=== PATIENT | female | born 1950 | race Caucasian/White ===

== ENCOUNTER → 2024-01-03 | Outpatient (CLI) | payer OTHER, MEDICAID, SELFPAY ==
[2024-01-03 11:32] LABS: Basophils % (Auto) 1 % (0-2.5); Eosinophils % (Auto) 1 % (0-10); Hematocrit 38.6 % (36.0-46.0); Hemoglobin 12.9 g/dL (12.0-16.0); Immature Granulocytes % (Auto) 0 % (0-0); Immature Granulocytes Auto 0.01 Thou/mm3 (0.00-0.00); Lymphocytes # (Auto) 1.4 Thou/mm3 (1.0-4.8); Lymphocytes % (Auto) 23 % (10-50); Mean Corpuscular HGB Conc 33.4 g/dl (31.0-37.0); Mean Corpuscular Hemoglobin 28.1 pg (25.0-35.0); Mean Corpuscular Volume 84 fL (80-100); Monocytes # (Auto) 0.5 Thou/mm3 (0.0-0.8); Monocytes % (Auto) 8 % (0-12); Neutrophils # (Auto) 4.1 Thou/mm3 (1.8-7.7); Neutrophils % (Auto) 68 % (37-80); Nucleated Red Blood Cell % 0 /100 WBC (0); Platelet Count 154 Thou/mm3 (140-440); RDW Standard Deviation 41.9 fL (36.4-46.3); Red Blood Count 4.59 Miln/mm3 (4.00-5.20); White Blood Count 6.1 Thou/mm3 (3.6-11.0)
[2024-01-03 11:43] LABS: Glucose Estimated Average 94 mg/dL (80-131); Hemoglobin A1C 4.9 % Hgb (4.8-6.0)
[2024-01-03 11:58] LABS: Alanine Aminotransferase 8 U/L (10-49); Albumin, Serum 4.5 gm/dL (3.4-4.8); Alkaline Phosphatase 83 U/L (46-116); Anion Gap 8 (7-16); Aspartate Amino Transferase 17 U/L (0-34); BUN/Creatinine Ratio 15 Ratio (12-20); Bilirubin,Total 0.7 mg/dL (0.3-1.2); Blood Urea Nitrogen 17 mg/dL (9-23); Calcium 9.7 mg/dL (8.3-10.6); Calcium (Corrected) 9.7 mg/dL (8.5-10.1); Carbon Dioxide 25.8 mMol/L (20.0-31.0); Cardiac Risk Estimate 2.9 RATIO (3.7-5.6); Chloride 106 mMol/L (98-107); Cholesterol 141 mg/dL (132-200); Creatinine (Component) 1.1 mg/dL (0.6-1.3); Globulin 2.2 gm/dL (2.3-3.5); Glucose 81 mg/dL (74-106); HDL Cholesterol 48 mg/dL (40-60); LDL Cholesterol,Calculated 70 mg/dL (0-130); Osmolality,Calculated 279 (275-295); Potassium 3.8 mMol/L (3.4-5.1); Sodium 140 mMol/L (136-145); Total Protein 6.7 gm/dL (5.7-8.2); Triglycerides 115 mg/dL (30-150); eGFR 52 See Note
[2024-01-03 12:36] LABS: Collection Type, Urine Clean Catch
[2024-01-03 13:00] LABS: Creatinine MALB Rnd Ur 235 mg/dL (30-125); Microalbumin Creat Ratio 2 mg/gCrea (<30); Microalbumin, Random Urine 4 mg/L (0-300)
[2024-01-03 13:06] LABS: Bilirubin,Urine Negative (Negative); Blood,Urine Negative (Negative); Clarity,Urine Turbid (Clear/Hazy); Color,Urine Yellow (Lt Yel-Yel); Glucose, Urine Negative (Negative); Hyaline Casts,Urine < 1 /hpf (0-1); Ketones,Urine Negative (Negative); Leukocyte Esterase,Urine Positive (Negative); Nitrite,Urine Negative (Negative); Protein,Urine Trace (Neg - Trace); RBC,Urine 6 /hpf (0-3); Specific Gravity,Urine 1.027 (1.001-1.035); Squamous Epithelial Cell,Urine 7 /hpf (0-5); Urobilinogen,Urine Negative mg/dL (0.0-1.0); WBC,Urine 5 /hpf (0-5)
== END | disposition home or self-care (01) ==
LOC: COPL 10:29
PROVIDERS: PCP Internal Medicine; Referring Provider Internal Medicine; Visit Provider Internal Medicine
DX: I10 Essential (primary) hypertension (principal); E78.5 Hyperlipidemia, unspecified; I25.10 Atherosclerotic heart disease of native coronary artery without angina pectoris
CPT/HCPCS: 36415; 80053; 80061; 81001; 82043; 82570; 83036; 85025

== ENCOUNTER → 2024-01-29 | Outpatient (CLI) | payer OTHER, MEDICAID, SELFPAY ==
[2024-01-29 16:08] LABS: Anion Gap 11 (7-16); BUN/Creatinine Ratio 17 Ratio (12-20); Blood Urea Nitrogen 19 mg/dL (9-23); C-Reactive Protein < 0.4 mg/dL (0.0-0.9); Calcium 9.6 mg/dL (8.3-10.6); Chloride 105 mMol/L (98-107); Creatinine (Component) 1.1 mg/dL (0.6-1.3); Glucose 87 mg/dL (74-106); Osmolality,Calculated 280 (275-295); Potassium 4.1 mMol/L (3.4-5.1); Sodium 140 mMol/L (136-145); eGFR 52 See Note
[2024-01-29 16:40] LABS: Hepatitis A Antibody IgM Non Reactive (Non React); Hepatitis B Core Antibody IgM Non Reactive (Non React); Hepatitis B Surface Antigen Non Reactive (Non React); Hepatitis C Antibody Non Reactive (Non React)
[2024-01-29 17:14] LABS: Sed Rate (ESR) 16 mm/hr (0-30)
[2024-01-29 20:15] LABS: Creatinine MALB Rnd Ur 194 mg/dL (30-125); Microalbumin Creat Ratio 2 mg/gCrea (<30); Microalbumin, Random Urine 4 mg/L (0-300)
[2024-02-05 06:17] LABS: CA 19-9 Antigen* 18 U/mL (<34)
== END | disposition home or self-care (01) ==
PROVIDERS: PCP Internal Medicine; Referring Provider Internal Medicine Gastroenterology; Visit Provider Internal Medicine Gastroenterology
DX: K29.00 Acute gastritis without bleeding (principal)
CPT/HCPCS: 36415; 80048; 80074; 82043; 82570; 85652; 86140; 86301

== ENCOUNTER → 2024-01-30 | Outpatient (CLI) | payer OTHER, MEDICAID, SELFPAY ==
[2024-01-30 08:57] LABS: OBS Card Expiration Date 2026-09; OBS Card Lot # 23001; OBS Performed By LAB; OBS QC OK? Yes
[2024-01-30 09:04] LABS: Quantiferon-TB* See Sep Rpt
[2024-01-30 13:40] LABS: OBS Developer Lot # 23003; Occult Blood, Stool Negative (Negative)
[2024-02-06 06:23] LABS: Helicobacter pylori Ag, Stool* NOT DETECTED (NOT DETECTED)
== END | disposition home or self-care (01) ==
PROVIDERS: PCP Internal Medicine; Referring Provider Internal Medicine Gastroenterology; Visit Provider Internal Medicine Gastroenterology
DX: K29.00 Acute gastritis without bleeding (principal)
CPT/HCPCS: 82043; 82270; 82570; 86480; 87015; 87045; 87046; 87177; 87209; 87338; 87899

== ENCOUNTER → 2024-02-28 | Outpatient (CLI) | payer OTHER, MEDICAID, SELFPAY ==
[2024-02-28 12:52] LABS: Albumin, Serum 4.6 gm/dL (3.4-4.8); Anion Gap 11 (7-16); BUN/Creatinine Ratio 17 Ratio (12-20); Blood Urea Nitrogen 19 mg/dL (9-23); Calcium 9.9 mg/dL (8.3-10.6); Calcium (Corrected) 9.9 mg/dL (8.5-10.1); Carbon Dioxide 26.5 mMol/L (20.0-31.0); Chloride 104 mMol/L (98-107); Creatinine (Component) 1.1 mg/dL (0.6-1.3); Glucose 87 mg/dL (74-106); Osmolality,Calculated 282 (275-295); Phosphorous 3.7 mg/dL (2.4-5.1); Sodium 141 mMol/L (136-145); eGFR 52 See Note
== END | disposition home or self-care (01) ==
LOC: COPL 11:48
PROVIDERS: PCP Internal Medicine; Referring Provider Internal Medicine; Visit Provider Internal Medicine
DX: I10 Essential (primary) hypertension (principal)
CPT/HCPCS: 36415; 80069

== ENCOUNTER → 2024-03-03 | Outpatient (CLI) | payer OTHER, MEDICAID, SELFPAY ==
--- NOTE | 2024-03-03 08:00 | XR_ITS ---
Examination: MRI abdomen with intravenous contrast. MRI abdomen without intravenous contrast. Date and time of exam: March 03, 2024 at 0845 hours INDICATIONS: Abdominal pain flank pain beginning one year ago Technique: Multiple axial, sagittal and coronal sections of the abdomen obtained. Transverse images, TR 6020, TE 107. T1 weighted transverse images, TR 582, TE 9.5. T2-weighted sagittal images, TR 4000, TE 105. T2-weighted sagittal images, TR 4000, TE 5. Coronal images, TR 4210, TE 107. Axial and coronal images are obtained post 20 cc intravenous injection, gadolinium. Findings: No focal liver lesions or biliary tract dilatation Gallbladder wall appears mildly thickened No extra hepatic biliary tract dilatation No common hepatic or common bile duct stones Bilateral renal cysts, the largest upper pole left kidney 3.9 cm No hydronephrosis No ascites Aorta normal size Postcontrast images demonstrate no abnormal enhancing liver or splenic lesions IMPRESSION: Recommend hepatobiliary sonography follow-up to exclude thickening gallbladder wall Bilateral benign renal cysts
--- NOTE | 2024-03-03 09:00 | XR_ITS ---
Examination: MRI pelvis with intravenous contrast. MRI pelvis without intravenous contrast. Date and time of exam: March 03, 2024 0845 hours INDICATIONS: Stabbing pain in the vaginal area beginning September 23, 2023, abdominal pain flank pain one year Technique: Multiple axial, sagittal and coronal sections of the pelvis obtained. Transverse images, TR 6020, TE 107. T1 weighted transverse images, TR 582, TE 9.5. T2-weighted sagittal images, TR 4000, TE 105. T2-weighted sagittal images, TR 4000, TE 5. Coronal images, TR 4210, TE 107. Axial and coronal images are obtained post 20 cc intravenous injection, gadolinium. Findings: Atrophic anteverted uterus, 6 x 3 x 4 cm Uterine body area of fibroid degeneration 13 x 12 mm without enhancement Endometrial stripe is not thickened Magnetic susceptibility artifact from lower lumbar transpedicular fixation screws degrades image quality in the pelvis No adnexal mass Enhancing mass in the left iliacus muscle 3.4 cm with surrounding edema IMPRESSION: Enhancing mass left iliacus muscle 3.4 x 3.6 cm, recommend high-resolution CT pelvis post intravenous contrast follow-up
== END | disposition home or self-care (01) ==
LOC: SMRI 07:32
PROVIDERS: PCP Internal Medicine Gastroenterology; Referring Provider Internal Medicine Gastroenterology; Visit Provider Internal Medicine Gastroenterology
DX: N28.1 Cyst of kidney, acquired (principal)
CPT/HCPCS: 72197; 74183; A9579

== ENCOUNTER 2024-06-12 16:18 | Emergency (ER) | payer OTHER, MEDICAID, SELFPAY ==
[2024-06-12 16:19] VITALS: BMI 31.7
[2024-06-12 16:28] VITALS: BP 145/79; PULSE 71; RESP 18; TEMP 37.1; O2SAT 98
--- NOTE | 2024-06-12 16:36 | EKG_ITS ---
[facility] Test Date: 2024-06-12 Pat Name: JAMEY CHUA Department: Room: - Gender: Female Mat Maker: : [id number] Requested By: Sylvester Alejandre Order Number: [id number] Reading MD: Sylvester Alejandre Measurements Intervals Hellier Rate: 68 P: 53 DC: 182 QRS: 14 QRSD: 90 T: 28 QT: 414 QTc: 443 Interpretive Statements SINUS RHYTHM Compared to ECG 10/29/2023 14:17:24 Myocardial infarct finding no longer present /store/S0/[id number]/ecg/[id number].pdf
--- NOTE | 2024-06-12 16:36 | XR_ITS ---
Examination: CT brain head without contrast. 2-D sagittal coronal reconstructions Date and time of exam:June 12, 2024 1715 hrs. Indications: Dizziness episodes with lightheadedness 3 days CTDI: vol (mGy):45.3 DLP: (mGycm):981 Technique: Multiple CT axial sections of the brain have been obtained, 5 mm slice thickness. Contrast has not been administered. 2-D sagittal, coronal reconstructions have been obtained Low dose protocols were performed. One or more of the following dose reduction techniques were used; automated exposure control, adjustment of the mA and/or KV according to patient size, use of iterative reconstruction technique. Findings: No significant ventricular enlargement. Intra-axial or extra-axial hemorrhage density is not seen. No mass effect or midline shift Basal cisterns are not remarkable. Fourth ventricle is midline. Cranial vault intact. Impression: Negative for acute hemorrhage, mass effect or midline shift Advise clinical correlation follow-up accordingly
--- NOTE | 2024-06-12 16:36 | PD.EDRME ---
Rapid Medical Screening Exam RME Arrival date/time: 06/12/24 16:18 74-year-old female with a history of hypertension, hyperlipidemia, presents to the emergency room with a chief complaint of dizziness and lightheadedness x 3 days I have greeted and performed a focused initial assessment of this patient. A comprehensive ED assessment and evaluation of the patient, analysis of all test results, and completion of the medical decision making process will be conducted by additional ED providers. Chief Complaint: General Adult/Misc Complain Time Seen by Provider: 06/12/24 16:28 Vital signs: Vital Signs Temperature 98.7 F 06/12/24 16:28 Pulse Rate 71 06/12/24 16:28 Respiratory Rate 18 06/12/24 16:28 Blood Pressure 145/79 H 06/12/24 16:28 Pulse Oximetry (%) 98 06/12/24 16:28 Oxygen Delivery Method Room Air 06/12/24 16:28 Vital signs reviewed by provider: Yes
[2024-06-12] MEDS: MECLIZINE HCL 25 MG TABLET 50 MG PO (16:44)
[2024-06-12 17:22] LABS: Basophils # (Auto) 0.1 Thou/mm3 (0.0-0.2); Basophils % (Auto) 1 % (0-2.5); Eosinophils % (Auto) 1 % (0-10); Hemoglobin 14.2 g/dL (12.0-16.0); Immature Granulocytes % (Auto) 1 % (0-0); Immature Granulocytes Auto 0.03 Thou/mm3 (0.00-0.00); Lymphocytes # (Auto) 1.8 Thou/mm3 (1.0-4.8); Lymphocytes % (Auto) 28 % (10-50); Mean Corpuscular Volume 82 fL (80-100); Monocytes # (Auto) 0.8 Thou/mm3 (0.0-0.8); Monocytes % (Auto) 12 % (0-12); Neutrophils # (Auto) 3.7 Thou/mm3 (1.8-7.7); Neutrophils % (Auto) 59 % (37-80); Nucleated Red Blood Cell % 0 /100 WBC (0); Platelet Count 187 Thou/mm3 (140-440); RDW Standard Deviation 44.6 fL (36.4-46.3); Red Blood Count 5.25 Miln/mm3 (4.00-5.20); White Blood Count 6.4 Thou/mm3 (3.6-11.0)
[2024-06-12 17:42] LABS: Alanine Aminotransferase 21 U/L (10-49); Albumin, Serum 4.7 gm/dL (3.4-4.8); Albumin/Globulin Ratio 1.9 (1.2-2.2); Alkaline Phosphatase 66 U/L (46-116); Anion Gap 11 (7-16); Aspartate Amino Transferase 39 U/L (0-34); BUN/Creatinine Ratio 16 Ratio (12-20); Bilirubin,Total 0.7 mg/dL (0.3-1.2); Blood Urea Nitrogen 16 mg/dL (9-23); Calcium 9.8 mg/dL (8.3-10.6); Calcium (Corrected) 9.8 mg/dL (8.5-10.1); Carbon Dioxide 19.6 mMol/L (20.0-31.0); Chloride 107 mMol/L (98-107); Estimated Creatinine Clearance 44.7 mL/min (>60); Globulin 2.5 gm/dL (2.3-3.5); Glucose 98 mg/dL (74-106); Osmolality,Calculated 276 (275-295); Potassium 4.5 mMol/L (3.4-5.1); Sodium 138 mMol/L (136-145); Total Protein 7.2 gm/dL (5.7-8.2); Troponin I < 0.020 ng/mL (0.0-0.045); eGFR 58 See Note
[2024-06-12] MEDS: ONDANSETRON ODT 4 MG TABRAP PO (18:18)
[2024-06-12 19:50] VITALS: BP 145/93; PULSE 60; RESP 18; TEMP 36.9; O2SAT 99
[2024-06-12 20:46] LABS: Collection Type, Urine Clean Catch
[2024-06-12 21:06] LABS: Bilirubin,Urine Negative (Negative); Blood,Urine Negative (Negative); Clarity,Urine Turbid (Clear/Hazy); Color,Urine Yellow (Lt Yel-Yel); Glucose, Urine Negative (Negative); Hyaline Casts,Urine < 1 /hpf (0-1); Ketones,Urine Negative (Negative); Leukocyte Esterase,Urine Positive (Negative); Nitrite,Urine Negative (Negative); PH,Urine 5.5 (5.0-7.0); Protein,Urine Negative (Neg - Trace); RBC,Urine 6 /hpf (0-3); Specific Gravity,Urine 1.021 (1.001-1.035); Squamous Epithelial Cell,Urine 20 /hpf (0-5); Urobilinogen,Urine Negative mg/dL (0.0-1.0); WBC,Urine 10 /hpf (0-5)
--- NOTE | 2024-06-12 21:40 | PD.EDADULT ---
ED General RME/HPI General Chief complaint: General Adult/Misc Complain Stated complaint: FEELS LIKE BLOOD IS RUSHING TO HEAD, WEAK Time Seen by Provider: 06/12/24 16:28 Arrival date/time: 06/12/24 16:18 RME / HPI RME / HPI narrative: 74-year-old female with a history of hypertension, hyperlipidemia, presents to the emergency room with a chief complaint of dizziness and lightheadedness x 3 days. Everything happened with the patient is shifting position from sitting to standing patient denies any syncope. Denies any chest pain denies any headache denies any other complaints. Related Data Home Medications ?Medication ?Instructions ?Recorded ?Confirmed benazepril 20 mg tablet 5 mg PO QDAY 02/22/18 07/09/23 omeprazole 20 mg tablet,delayed 20 mg PO QDAY 02/22/18 07/09/23 release allopurinol 300 mg tablet 300 mg PO DAILY 03/25/21 07/09/23 atorvastatin 80 mg tablet 80 mg PO DAILY 03/25/21 07/09/23 carvedilol 6.25 mg tablet 6.25 mg PO DAILY 03/25/21 07/09/23 dldqjx-gkpiyrjk-wxwierr 12,000 cap PO DAILY 03/25/21 07/09/23 12,000-38,000-60,000 unit capsule,delayed rel (Creon) ranolazine 500 mg tablet,extended 5 mg PO BID 03/25/21 07/09/23 release,12 hr spironolactone 25 mg tablet 25 mg PO EVERYOTHER03/25/21 07/09/23 roflumilast 500 mcg tablet 500 mcg PO QDAY 09/08/21 07/09/23 (Daliresp) carbidopa 25 mg-levodopa 100 mg 1 tab PO TID 07/09/23 07/09/23 tablet Previous Rx's ?Medication ?Instructions ?Recorded pantoprazole 40 mg tablet,delayed 40 mg PO QDAY #30 tabs 06/28/23 release (Protonix) pantoprazole 40 mg tablet,delayed 40 mg PO QDAY #30 tabs 07/11/23 release (Protonix) sucralfate 100 mg/mL oral 5 ml PO QID #420 mL 07/11/23 suspension (Carafate) diazepam 5 mg tablet 5 mg PO BID PRN muscle spasm #5 09/24/23 tabs Allergies Allergy/AdvReac Type Severity Reaction Status Date / Time duloxetine Allergy Intermediate Shakiness Verified 06/12/24 16:21 gabapentin Allergy Intermediate Rash Verified 06/12/24 16:21 Review of Systems Review of Systems Narrative Review of Systems: Review of system reviewed and within normal limits except mentioned in HPI ED Exam Narrative Physical exam: VITAL SIGNS: Reviewed. GENERAL APPEARANCE: Alert and interactive, follows commands, no acute distress, HEAD AND FACE: Non-traumatic. ENT: PERRL, pink conjunctivitis, eyelid no trauma, Mucous membrane moist. NECK: Supple, nontender, no nuchal rigidity. CHEST: No tenderness, no crepitus, no paradoxical movement, no retractions. LUNGS: Clear, well ventilated, symmetric, no rales, no wheezing, no ronchi, no stridor, good breath sounds bilaterally. HEART: Regular rate, regular rhythm, no murmur, no gallops. ABDOMEN: Soft, positive bowel sounds, nondistended, no guarding, nontender, no rebound, no masses, RECTAL: Deferred. GENITAL: Deferred. NEUROLOGICAL: Gross motor function intact sensory function intact, Appropriate for age. MUSCULOSKELETAL: low back nontender, full range of motion. EXTREMITIES: Nontender, full range of motion. SKIN: Color pink, dry, no rash, no lacerations, no abrasions, no contusions. LYMPHATICS: Deferred. Course Quality Measures none Orders Category Date Time Status EKG (ED ONLY) *Do not use* NOW Care 06/12/24 16:36 Completed Orthostatic Vitals NOW Care 06/12/24 16:[address] head/brain wo con Stat Exams 06/12/24 16:36 Completed EKG (ED Only) Stat Exams 06/12/24 16:36 Draft CBC Stat Lab 06/12/24 16:56 Completed Comprehensive Metabolic Panel Stat Lab 06/12/24 16:56 Completed Troponin I Stat Lab 06/12/24 16:56 Completed Urinalysis Stat Lab 06/12/24 19:48 Completed Urine Culture Stat Lab 06/12/24 16:36 Received Meclizine HCl [Antivert] Med 06/12/24 16:36 Discontinued 50 mg PO X1 ONE Ondansetron Odt [Zofran Odt] Med 06/12/24 17:03 Discontinued 4 mg PO X1 ONE Vital Signs Vital signs: Vital Signs Temperature 98.7 F 06/12/24 16:28 Pulse Rate 71 06/12/24 16:28 Respiratory Rate 18 06/12/24 16:28 Blood Pressure 145/79 H 06/12/24 16:28 Pulse Oximetry (%) 98 06/12/24 16:28 Oxygen Delivery Method Room Air 06/12/24 16:28 Discharge Plan Plan Patient Disposition: HOME (Self Care) Disposition Comment: Stable Prescriptions/Referrals Prescriptions/Med Rec: No Action Daliresp 500 mcg tablet 500 mcg PO QDAY benazepril 20 mg Tablet 5 mg PO QDAY omeprazole 20 mg Tablet,Delayed Release (Dr/Ec) 20 mg PO QDAY Creon 12,000-38,000 -60,000 unit Capsule,Delayed Release(Dr/Ec) 12,000 cap PO DAILY spironolactone 25 mg tablet 25 mg PO EVERYOTHERDAY ranolazine 500 mg Tablet Extended Release 12 Hr 5 mg PO BID atorvastatin 80 mg tablet 80 mg PO DAILY carvedilol 6.25 mg tablet 6.25 mg PO DAILY allopurinol 300 mg tablet 300 mg PO DAILY pantoprazole [Protonix] 40 mg tablet,delayed release (DR/EC) 40 mg PO QDAY Qty: 30 0RF carbidopa-levodopa 25-100 mg tablet 1 tab PO TID Patient Comments: take 1 tablet by mouth three times a day sucralfate [Carafate] 100 mg/mL suspension 5 ml PO QID Qty: 420 0RF Rx Instructions: swish in mouth and swallow; use after food/drink pantoprazole [Protonix] 40 mg tablet,delayed release (DR/EC) 40 mg PO QDAY Qty: 30 0RF diazepam 5 mg tablet 5 mg PO BID MDD 2 PRN (Reason: muscle spasm) Qty: 5 0RF Referrals: No Primary/Family,Physician [Primary Care Provider] - In 1 week Problem List Clinical Impression: Orthostatic dizziness Patient/Caregiver Discharge Instructions Discharge Activity: activity as tolerated Education Materials: Dizziness Fainting Poss Causes Additional Instructions: Thank you for the opportunity for serving you today. You are stable for discharged . You are advised to: Follow-up with your PCP in 1 to 2 days Return to ED for worsening of symptoms Increase oral fluids Please wear SHANIA hose in the morning and remove it during the night Print Language: Croatian Stand Alone Forms: Margie Award Info., Patient Portal Info Letter CECILY Supervising Physician CECILY Supervising Physician: MD Nj [facility] Patient Acuity Narrative: 74-year-old female with a history of hypertension, hyperlipidemia, presents to the emergency room with a chief complaint of dizziness and lightheadedness x 3 days. Everything happened with the patient is shifting position from sitting to standing patient denies any syncope. Denies any chest pain denies any headache denies any other complaints. Patient CBC showed no leukocytosis, no anemia noted. CMP also came back unremarkable. Urinalysis no UTI. Patient's blood pressure was noted to be stable. CT scan of the head came back unremarkable. EKG showed normal sinus rhythm, ventricular rate of 68 bpm, no ST segment elevation depression noted. Patient's symptoms could be related to orthostatic dizziness. She was advised to drink a lot of fluids and wear SHANIA hose in the morning and remove it during the night. Prior to discharge she denies any complaints. Clinical Information Provided by: none Medication Administration(s) Medication Administration History Discontinued Medications Meclizine HCl (Meclizine Hcl 25 Mg Tablet) 50 mg PO X1 ONE Stop: 06/12/24 16:37 Last Admin: 06/12/24 16:44 Dose: 50 mg Documented By: WESLEY Ondansetron HCl (Ondansetron Odt 4 Mg Tabrap) 4 mg PO X1 ONE; Protocol Stop: 06/12/24 17:04 Last Admin: 06/12/24 18:18 Dose: 4 mg Documented By: WESLEY Meclizine and Zofran
== END 2024-06-12 21:40 | disposition home or self-care (01) ==
PROVIDERS: Nurse Practitioner Family; Emergency Provider Emergency Medicine
DX: R42 Dizziness and giddiness (principal); E78.5 Hyperlipidemia, unspecified; I10 Essential (primary) hypertension
CPT/HCPCS: 36415; 70450; 80053; 81001; 84484; 85025; 87086; 93005; 99284; Q0162; A9270

== ENCOUNTER 2024-08-26 19:51 | Emergency (ER) | payer MEDICAID, SELFPAY ==
[2024-08-26 20:13] VITALS: BP 142/68; PULSE 61; RESP 20; TEMP 37.3; O2SAT 95
--- NOTE | 2024-08-26 20:52 | XR_ITS ---
Examination: CT brain head without contrast. 2-D sagittal coronal reconstructions Date and time of exam:August 26, 2024, 2122 hours Comparison June 28, 2024 INDICATIONS: Headache blurred vision today CTDI: vol (mGy):42 DLP: (mGycm):765 Technique: Multiple CT axial sections of the brain have been obtained, 5 mm slice thickness. Contrast has not been administered. 2-D sagittal, coronal reconstructions have been obtained Low dose protocols were performed. One or more of the following dose reduction techniques were used; automated exposure control, adjustment of the mA and/or KV according to patient size, use of iterative reconstruction technique. Findings: No significant ventricular enlargement. Intra-axial or extra-axial hemorrhage density is not seen. No mass effect or midline shift Basal cisterns are not remarkable. Fourth ventricle is midline. Cranial vault intact. Impression: Negative for acute hemorrhage, mass effect or midline shift If symptoms persist, consider brain MRI follow-up
--- NOTE | 2024-08-26 20:54 | PD.EDADULT ---
ED General RME/HPI General Chief complaint: Headache Stated complaint: HEADACHE BLURRY VISION Time Seen by Provider: 08/26/24 20:03 Arrival date/time: 08/26/24 19:51 Patient presenting with ongoing bitemporal occipital headache approximately 3 days duration of increasing intensity associated with warm flushed sensation. Patient also notes blurred vision . No lateralizing weakness or paresthesias although the patient does report mild confusion. No vomiting or diarrhea. Headache is throbbing in character and unchanged with exertion. Mode of arrival: ambulatory Limitations: no limitations Related Data Home Medications ?Medication ?Instructions ?Recorded ?Confirmed benazepril 20 mg tablet 5 mg PO QDAY 02/22/18 07/09/23 omeprazole 20 mg tablet,delayed 20 mg PO QDAY 02/22/18 07/09/23 release allopurinol 300 mg tablet 300 mg PO DAILY 03/25/21 07/09/23 atorvastatin 80 mg tablet 80 mg PO DAILY 03/25/21 07/09/23 carvedilol 6.25 mg tablet 6.25 mg PO DAILY 03/25/21 07/09/23 gukppu-pwecspce-inidkct 12,000 cap PO DAILY 03/25/21 07/09/23 12,000-38,000-60,000 unit capsule,delayed rel (Creon) ranolazine 500 mg tablet,extended 5 mg PO BID 03/25/21 07/09/23 release,12 hr spironolactone 25 mg tablet 25 mg PO EVERYOTHERDAY 03/25/21 07/09/23 roflumilast 500 mcg tablet 500 mcg PO QDAY 09/08/21 07/09/23 (Daliresp) carbidopa 25 mg-levodopa 100 mg 1 tab PO TID 07/09/23 07/09/23 tablet Previous Rx's ?Medication ?Instructions ?Recorded pantoprazole 40 mg tablet,delayed 40 mg PO QDAY #30 tabs 06/28/23 release (Protonix) pantoprazole 40 mg tablet,delayed 40 mg PO QDAY #30 tabs 07/11/23 release (Protonix) sucralfate 100 mg/mL oral 5 ml PO QID #420 mL 07/11/23 suspension (Carafate) diazepam 5 mg tablet 5 mg PO BID PRN muscle spasm #5 09/24/23 tabs meclizine 25 mg tablet 25 mg PO QID PRN dizziness #20 tabs 06/28/24 acetaminophen 300 mg-codeine 15 mg 1 tab PO Q8H #14 tabs 08/27/24 tablet cefdinir 300 mg capsule 300 mg PO BID 7 days #14 caps 08/27/24 hydrocodone 5 mg-acetaminophen 325 1 tab PO Q6H PRN pain #1 tab 08/27/24 mg tablet hydrocodone 5 mg-acetaminophen 325 1 tab PO Q6H PRN pain #14 tabs 08/27/24 mg tablet ondansetron 4 mg disintegrating 4 mg PO Q6H PRN nausea and 08/27/24 tablet vomiting #10 tabs Allergies Allergy/AdvReac Type Severity Reaction Status Date / Time duloxetine Allergy Intermediate Shakiness Verified 08/26/24 19:58 gabapentin Allergy Intermediate Rash Verified 08/26/24 19:58 Review of Systems Constitutional Constitutional: Denies chills and Denies fever(s) ENT Ears, Nose, Mouth, and Throat: Denies nasal congestion, Denies nasal discharge, Denies sinus pressure and Denies sore throat Cardiovascular Cardiovascular: Denies chest pain, Denies dyspnea and Denies edema Respiratory Respiratory: Denies cough and Denies dyspnea Gastrointestinal Gastrointestinal: Denies nausea and Denies vomiting Musculoskeletal Musculoskeletal: Denies arthralgias Neurologic Neurologic: Reports system reviewed and no additional complaints, except as documented Hematologic/Lymphatic Hematologic/Lymphatic: Denies easy bleeding and Denies easy bruising Past Medical History Past Medical History NEUROLOGIC: Negative Neurological Disorders or Seizures CARDIAC: Positive Cardiac Disorders, Myocardial Infarction, Hypercholesterolemia and Hypertension; Negative Congestive Heart Failure RESPIRATORY: Positive Chronic Obstructive Pulmonary Disease (COPD), Emphysema and Pneumonia; Negative Tuberculosis or Sleep Apnea GASTROINTESTINAL: Positive Gastrointestinal Disorders, Pancreatitis, Hemorrhoids and Gastroesophageal Reflux Disease; Negative Hepatitis GENITOURINARY: Positive Genitourinary Disorders and Renal Disease; Negative Dialysis REPRODUCTIVE: Positive Previous Pregnancies MUSCULOSKELETAL: Positive Musculoskeletal Disorders, Arthritis and Carpal Tunnel Syndrome ENT: Positive Cataracts ENDOCRINE: Positive Endocrine Disorders, Diabetes Mellitus Type 1 and Diabetes Mellitus Type 2 HEMATOLOGIC: Positive Blood Disorders PSYCHO/SOCIAL: Positive Depression and Anxiety OTHER HISTORY: Positive Hospitalization, Chicken Pox, Measles and Mumps; Negative Autoimmune Disease, Shingles, Falls, Blood Transfusions, Blood Transfusion Reaction, Anesthesia Reactions, Chemotherapy, Radiation Therapy, MRSA or Cancer Family History FAMILY HISTORY: Positive Family Cardiac Disorders and Family Cancer; Negative Family Psychiatric Problems, Family Respiratory Disorders, Family Gastrointestinal Problems, Family Surgery or Family Anesthesia Reaction Surgical History SURGICAL: Positive Tonsillectomy, Joint Replacement and Open Reduction Internal Fixation Social History SMOKING STATUS: Former smoker SUBSTANCE USE: does not use ALCOHOL FREQUENCY: holidays/special occasions only ED Exam General Limitations: Present no limitations General appearance: Present alert and in distress (Mild distress complains of headache) Head Head exam: Present atraumatic Eye Eye exam: Present normal appearance, PERRL, EOMI and other (Funduscopic examination is normal) ENT ENT exam: Present normal exam, normal oropharynx and mucous membranes moist Neck Neck exam: Present normal inspection, full ROM and trachea midline Chest Chest inspection: Present normal inspection and symmetric chest wall rise Respiratory Respiratory exam: Present normal lung sounds bilaterally Cardiovascular Cardiovascular exam: Present regular rate, normal rhythm and normal heart sounds Abdominal Exam Abdominal exam: Present soft and normal bowel sounds; Absent distention or tenderness Extremities Exam Extremities exam: Present normal inspection and full ROM Back Exam Back exam: Present normal inspection and full ROM Neurological Exam Neurological exam: Present alert, oriented X3, CN II-XII intact and reflexes normal; Absent motor sensory deficit Psychiatric Psychiatric exam: Present normal affect and normal mood Skin Skin exam: Present warm, dry, intact and normal color Course Quality Measures none Orders Category Date Time Status Insert IV NOW Care 08/26/24 20:[address] head/brain wo con Stat Exams 08/26/24 20:52 Completed C-Reactive Protein Stat Lab 08/26/24 21:11 Completed CBC Stat Lab 08/26/24 21:11 Completed CMP [Comprehensive Metabolic Panel] Stat Lab 08/26/24 21:11 Completed Sed Rate (ESR) Stat Lab 08/26/24 21:11 Completed Urinalysis, C/S if Indicated Stat Lab 08/26/24 22:05 Completed Morphine Inj Med 08/26/24 20:51 Discontinued 2 mg IVP Q30M ONE Prochlorperazine Inj [Compazine Inj] Med 08/26/24 20:50 Discontinued 5 mg IVP X1 ONE Sodium Chloride 0.9% 250 ml [Ns] 250 ml Med 08/26/24 20:50 Discontinued IV 999 mls/hr cefTRIAXone/D5w 1gm IV premix [Rocephin/D5w 1gm IV Med 08/26/24 23:02 Discontinued premix] 1 gm in 50 ml IV X1 Vital Signs Vital signs: Vital Signs Temperature 99.1 F 08/26/24 20:13 Pulse Rate 61 08/26/24 20:13 Respiratory Rate 20 08/26/24 20:13 Blood Pressure 142/68 H 08/26/24 20:13 Pulse Oximetry (%) 95 08/26/24 20:13 Oxygen Delivery Method Room Air 08/26/24 20:13 Oxygenation at 95% on room air?normal. Remainder vital signs also within normal limits Discharge Plan Plan Patient Disposition: HOME (Self Care) Patient condition on transfer: Stable Prescriptions/Referrals Prescriptions/Med Rec: New cefdinir 300 mg capsule 300 mg PO BID 7 Days Qty: 14 0RF ondansetron 4 mg tablet,disintegrating 4 mg PO Q6H PRN (Reason: nausea and vomiting) Qty: 10 0RF acetaminophen-codeine 300-15 mg tablet 1 tab PO Q8H Qty: 14 0RF hydrocodone-acetaminophen 5-325 mg tablet 1 tab PO Q6H MDD max 4 tabs per day PRN (Reason: pain) Qty: 14 0RF hydrocodone-acetaminophen 5-325 mg tablet 1 tab PO Q6H MDD 4tab/day PRN (Reason: pain) Qty: 1 0RF No Action Daliresp 500 mcg tablet 500 mcg PO QDAY benazepril 20 mg Tablet 5 mg PO QDAY omeprazole 20 mg Tablet,Delayed Release (Dr/Ec) 20 mg PO QDAY Creon 12,000-38,000 -60,000 unit Capsule,Delayed Release(Dr/Ec) 12,000 cap PO DAILY spironolactone 25 mg tablet 25 mg PO EVERYOTHERDAY ranolazine 500 mg Tablet Extended Release 12 Hr 5 mg PO BID atorvastatin 80 mg tablet 80 mg PO DAILY carvedilol 6.25 mg tablet 6.25 mg PO DAILY allopurinol 300 mg tablet 300 mg PO DAILY meclizine 25 mg tablet 25 mg PO QID PRN (Reason: dizziness) Qty: 20 0RF pantoprazole [Protonix] 40 mg tablet,delayed release (DR/EC) 40 mg PO QDAY Qty: 30 0RF carbidopa-levodopa 25-100 mg tablet 1 tab PO TID Patient Comments: take 1 tablet by mouth three times a day sucralfate [Carafate] 100 mg/mL suspension 5 ml PO QID Qty: 420 0RF Rx Instructions: swish in mouth and swallow; use after food/drink pantoprazole [Protonix] 40 mg tablet,delayed release (DR/EC) 40 mg PO QDAY Qty: 30 0RF diazepam 5 mg tablet 5 mg PO BID MDD 2 PRN (Reason: muscle spasm) Qty: 5 0RF Referrals: Nicolette Coats MD [Primary Care Provider] - In 1 week Problem List Clinical Impression: Tension headache, UTI (urinary tract infection) with pyuria Patient/Caregiver Discharge Instructions Discharge Activity: activity as tolerated Other Activity Instructions:: Force fluids/maintain adequate rest/begin second course of antibiotics, medication as directed. Return if worsening. Education Materials: Urinary Tract Infections in Women, Understanding Headache Pain Print Language: Lao Stand Alone Forms: [employer] Award Info., Patient Portal Info Letter MDM Narrative MDM hospital course: Patient presenting with ongoing bitemporal occipital headache approximately 3 days duration of increasing intensity associated with warm flushed sensation. Patient also notes blurred vision . No lateralizing weakness or paresthesias although the patient does report mild confusion. No vomiting or diarrhea. Please see PE findings. Laboratory markers demonstrate normal white blood cell count. Patient with equivocal UTI. Empiric Rocephin administered.. Patient was placed on library monitor, IV established patient received a fluid bolus in conjunction with low-dose narcotic analgesia/antiemetics. On serial evaluation patient resting comfortably and reports near complete resolution of headache. Pt Also noted recent course of antibiotics for acute cystitis. Patient nontoxic without signs of underlying sepsis. Considered stable for discharge. Will place on a second course of antibiotics including Ceftin in conjunction with analgesic and antiemetic. Close follow-up with primary care doctor recommended precaution instructions issued. Clinical Information Provided by patient and family Medical Records Reviewed [facility] Meds/Rx Considered, not Ordered Describe details: N/A Labs/Rad/Tests considered, not Ordered Describe details: N/A Chronic Illness/Social Conditions which may negatively complicate care or outcome(s)-explain: COPD Lab Interpretation Labs: interpreted by me Medication Administration(s) Medication Administration History Discontinued Medications Sodium Chloride (Ns) 250 mls @ 999 mls/hr IV .Q16M ONE Stop: 08/26/24 21:05 Last Infusion: 08/26/24 23:32 Dose: Infused Documented By: Admin: 08/26/24 23:14 Dose: 999 mls/hr Documented By: YOLANDA Ceftriaxone Sodium/Dextrose (Rocephin/D5w 1gm Iv Premix) 1 gm in 50 mls @ 100 mls/hr IV X1 ONE Stop: 08/26/24 23:31 Last Infusion: 08/27/24 00:43 Dose: Infused Documented By: Admin: 08/26/24 23:32 Dose: 100 mls/hr Documented By: YOLANDA Morphine Sulfate (Morphine Sulf Inj 10 Mg/Ml Vial) 2 mg IVP Q30M ONE Stop: 08/26/24 20:52 Last Admin: 08/26/24 23:18 Dose: 2 mg Documented By: YOLANDA Prochlorperazine Edisylate (Prochlorperazine Inj 5 Mg/Ml Vial 2 Ml) 5 mg IVP X1 ONE Stop: 08/26/24 20:51 Last Admin: 08/26/24 23:14 Dose: 5 mg Documented By: YOLANDA Diagnosis Differential diagnosis: Occipital neuralgia/intracranial tumor/hydrocephalus Dispositon Disposition: Discharge Home
[2024-08-26 21:33] LABS: Basophils # (Auto) 0.0 Thou/mm3 (0.0-0.2); Basophils % (Auto) 1 % (0-2.5); Eosinophils # (Auto) 0.1 Thou/mm3 (0.0-0.5); Eosinophils % (Auto) 1 % (0-10); Hematocrit 38.3 % (36.0-46.0); Hemoglobin 13.5 g/dL (12.0-16.0); Immature Granulocytes Auto 0.03 Thou/mm3 (0.00-0.00); Lymphocytes # (Auto) 2.0 Thou/mm3 (1.0-4.8); Lymphocytes % (Auto) 35 % (10-50); Mean Corpuscular HGB Conc 35.2 g/dl (31.0-37.0); Mean Corpuscular Hemoglobin 28.1 pg (25.0-35.0); Mean Corpuscular Volume 80 fL (80-100); Monocytes # (Auto) 0.5 Thou/mm3 (0.0-0.8); Monocytes % (Auto) 9 % (0-12); Neutrophils # (Auto) 3.0 Thou/mm3 (1.8-7.7); Neutrophils % (Auto) 53 % (37-80); Nucleated Red Blood Cell # 0.00 Thou/mm3 (0.00-0.00); Nucleated Red Blood Cell % 0 /100 WBC (0); Platelet Count 175 Thou/mm3 (140-440); RDW Standard Deviation 43.0 fL (36.4-46.3); Red Blood Count 4.81 Miln/mm3 (4.00-5.20); White Blood Count 5.6 Thou/mm3 (3.6-11.0)
[2024-08-26 21:49] LABS: Sed Rate (ESR) 11 mm/hr (0-30)
[2024-08-26 21:55] LABS: Alanine Aminotransferase 17 U/L (10-49); Albumin, Serum 4.5 gm/dL (3.4-4.8); Albumin/Globulin Ratio 1.8 (1.2-2.2); Alkaline Phosphatase 75 U/L (46-116); Anion Gap 11 (7-16); Aspartate Amino Transferase 29 U/L (0-34); BUN/Creatinine Ratio 13 Ratio (12-20); Bilirubin,Total 0.6 mg/dL (0.3-1.2); Blood Urea Nitrogen 13 mg/dL (9-23); C-Reactive Protein < 0.5 mg/dL (0.0-0.9); Calcium 9.5 mg/dL (8.3-10.6); Calcium (Corrected) 9.5 mg/dL (8.5-10.1); Carbon Dioxide 26.5 mMol/L (20.0-31.0); Chloride 106 mMol/L (98-107); Creatinine (Component) 1.0 mg/dL (0.6-1.3); Estimated Creatinine Clearance 57.6 mL/min (>60); Globulin 2.5 gm/dL (2.3-3.5); Glucose 86 mg/dL (74-106); Osmolality,Calculated 284 (275-295); Potassium 4.1 mMol/L (3.4-5.1); Sodium 143 mMol/L (136-145); Total Protein 7.0 gm/dL (5.7-8.2); eGFR 58 See Note
[2024-08-26 22:39] LABS: Collection Type, Urine Clean Catch
[2024-08-26 22:48] LABS: Bilirubin,Urine Negative (Negative); Blood,Urine Negative (Negative); Clarity,Urine Turbid (Clear/Hazy); Color,Urine Yellow (Lt Yel-Yel); Culture Indicated,Urine Contaminated; Glucose, Urine Negative (Negative); Ketones,Urine Negative (Negative); Leukocyte Esterase,Urine Positive (Negative); Nitrite,Urine Negative (Negative); PH,Urine 6.0 (5.0-7.0); Protein,Urine Negative (Neg - Trace); RBC,Urine 5 /hpf (0-3); Specific Gravity,Urine 1.022 (1.001-1.035); Squamous Epithelial Cell,Urine 18 /hpf (0-5); Urobilinogen,Urine Negative mg/dL (0.0-1.0); WBC,Urine 15 /hpf (0-5)
[2024-08-26] MEDS: SODIUM CHLORIDE 0.9% 250 ML 250 ML 999 ML IV (23:14)
[2024-08-26] MEDS: PROCHLORPERAZINE INJ 5 MG/ML VIAL 2 ML IVP (23:14)
[2024-08-26] MEDS: MORPHINE SULF INJ 10 MG/ML VIAL 2 MG IVP (23:18)
[2024-08-26] MEDS: cefTRIAXone/D5w 1gm IV premix 1 GM/50 ML BAG IV (23:32)
== END 2024-08-27 00:57 | disposition home or self-care (01) ==
PROVIDERS: Emergency Provider Emergency Medicine; PCP Internal Medicine
DX: G44.209 Tension-type headache, unspecified, not intractable (principal); N39.0 Urinary tract infection, site not specified
CPT/HCPCS: 36415; 70450; 80053; 81001; 85025; 85652; 86140; 96365; 96366; 96372; 96375; 99284; J0696; J0780; J2270; J7050

== ENCOUNTER → 2024-09-18 | Outpatient (CLI) | payer OTHER, MEDICAID, SELFPAY ==
--- NOTE | 2024-09-18 15:16 | XR_ITS ---
Examination: Lumbar spine, 5 views Technique: Lumbar spine AP, lateral, coned lateral lower lumbar spine, bilateral obliques 5 views Exam date and time: 07/19/2024 1518 hours Comparison November 07, 2023 INDICATIONS: Low back pain years. 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
== END | disposition home or self-care (01) ==
LOC: CDIM 15:07
PROVIDERS: PCP Internal Medicine; Referring Provider Internal Medicine; Visit Provider Internal Medicine
DX: M43.26 Fusion of spine, lumbar region (principal); M85.88 Other specified disorders of bone density and structure, other site; M81.0 Age-related osteoporosis without current pathological fracture; M51.360 Other intervertebral disc degeneration, lumbar region with discogenic back pain only
CPT/HCPCS: 72110

== ENCOUNTER 2025-02-17 15:49 | Emergency (ER) | payer OTHER, MEDICAID, SELFPAY ==
[2025-02-17 16:12] VITALS: BP 163/94; PULSE 64; RESP 20; TEMP 37.2; O2SAT 96; BMI 34.2
--- NOTE | 2025-02-17 16:12 | XR_ITS ---
Examination: CT brain head without contrast. 2-D sagittal coronal reconstructions Date and time of exam: February 17, 2025, 1801 hours INDICATIONS: High blood pressure with dizziness. Vision beginning 3 days ago CTDI: vol (mGy): 45.5 DLP: (mGycm): 905 Technique: Multiple CT axial sections of the brain have been obtained, 5 mm slice thickness. Contrast has not been administered. 2-D sagittal, coronal reconstructions have been obtained Low dose protocols were performed. One or more of the following dose reduction techniques were used; automated exposure control, adjustment of the mA and/or KV according to patient size, use of iterative reconstruction technique. Findings: No significant ventricular enlargement. Intra-axial or extra-axial hemorrhage density is not seen. No mass effect or midline shift Basal cisterns are not remarkable. Fourth ventricle is midline. Cranial vault intact. Impression: Negative for acute hemorrhage, mass effect or midline shift
--- NOTE | 2025-02-17 16:12 | EKG_ITS ---
[facility] Test Date: 2025-02-17 Pat Name: JAMEY CHUA Department: Room: - Gender: Female Public Relations Representative: : 1950 Requested By: Paula Gray Order Number: [id number] Reading MD: Paula Gray Measurements Intervals [place] Rate: 60 P: 16 MA: 172 QRS: -4 QRSD: 85 T: 22 QT: 406 QTc: 408 Interpretive Statements SINUS RHYTHM POSSIBLE ANTERIOR MYOCARDIAL INFARCTION , PROBABLY OLD [30 ms Q WAVE IN V3/V4, OR R < 0.2 mV IN V4] Compared to ECG 06/28/2024 15:20:21 Myocardial infarct finding now present Sinus bradycardia no longer present /store/S0/[id number]/[id number].pdf
--- NOTE | 2025-02-17 16:12 | PD.EDRME ---
Rapid Medical Screening Exam RME Arrival date/time: 02/17/25 15:49 This is a case of 74-year-old female with history of hypertension came into the emergency room with on and off dizziness and headache denies any numbness weakness or tingling sensation persistence of the symptoms this patient decided to sought consult here in the emergency room Chief Complaint: Dizziness Time Seen by Provider: 02/17/25 16:11 Vital signs: Vital Signs Temperature 99 F 02/17/25 16:12 Pulse Rate 64 02/17/25 16:12 Respiratory Rate 20 02/17/25 16:12 Blood Pressure 163/94 H 02/17/25 16:12 Pulse Oximetry (%) 96 02/17/25 16:12 Oxygen Delivery Method Room Air 02/17/25 16:12 Exam: Patient is awake alert oriented x 4 no focal deficit GCS 15/15 using walker for ambulation Clinical Impression: Dizziness
[2025-02-17 17:20] LABS: Basophils # (Auto) 0.0 Thou/mm3 (0.0-0.2); Basophils % (Auto) 1 % (0-2.5); Eosinophils # (Auto) 0.1 Thou/mm3 (0.0-0.5); Eosinophils % (Auto) 1 % (0-10); Hematocrit 39.6 % (36.0-46.0); Hemoglobin 13.0 g/dL (12.0-16.0); Immature Granulocytes Auto 0.01 Thou/mm3 (0.00-0.00); Lymphocytes # (Auto) 1.5 Thou/mm3 (1.0-4.8); Lymphocytes % (Auto) 30 % (10-50); Mean Corpuscular HGB Conc 32.8 g/dl (31.0-37.0); Mean Corpuscular Hemoglobin 26.9 pg (25.0-35.0); Mean Corpuscular Volume 82 fL (80-100); Monocytes # (Auto) 0.4 Thou/mm3 (0.0-0.8); Monocytes % (Auto) 8 % (0-12); Neutrophils # (Auto) 2.9 Thou/mm3 (1.8-7.7); Neutrophils % (Auto) 60 % (37-80); Nucleated Red Blood Cell # 0.00 Thou/mm3 (0.00-0.00); Nucleated Red Blood Cell % 0 /100 WBC (0); Platelet Count 208 Thou/mm3 (140-440); RDW Standard Deviation 43.9 fL (36.4-46.3); Red Blood Count 4.84 Miln/mm3 (4.00-5.20); White Blood Count 4.9 Thou/mm3 (3.6-11.0)
[2025-02-17 17:28] LABS: Collection Type, Urine Voided; RBC,Urine 0 /hpf (0-3); WBC,Urine 0 /hpf (0-5)
[2025-02-17 17:31] LABS: Alanine Aminotransferase 19 U/L (10-49); Albumin, Serum 4.6 gm/dL (3.4-4.8); Albumin/Globulin Ratio 1.8 (1.2-2.2); Alkaline Phosphatase 51 U/L (46-116); Anion Gap 12 (7-16); Aspartate Amino Transferase 29 U/L (0-34); BUN/Creatinine Ratio 14 Ratio (12-20); Bilirubin,Total 0.6 mg/dL (0.3-1.2); Blood Urea Nitrogen 13 mg/dL (9-23); Calcium 9.5 mg/dL (8.3-10.6); Calcium (Corrected) 9.5 mg/dL (8.5-10.1); Carbon Dioxide 24.1 mMol/L (20.0-31.0); Chloride 107 mMol/L (98-107); Creatinine (Component) 0.9 mg/dL (0.6-1.3); Estimated Creatinine Clearance 51.6 mL/min (>60); Globulin 2.5 gm/dL (2.3-3.5); Glucose 89 mg/dL (74-106); Osmolality,Calculated 284 (275-295); Potassium 4.3 mMol/L (3.4-5.1); Sodium 143 mMol/L (136-145); Total Protein 7.1 gm/dL (5.7-8.2); Troponin I < 0.002 ng/mL (0.0-0.045); eGFR > 60 See Note
[2025-02-17 17:41] LABS: Bacteria,Urine Rare; Bilirubin,Urine Negative (Negative); Blood,Urine Negative (Negative); Clarity,Urine Clear (Clear/Hazy); Color,Urine Yellow (Lt Yel-Yel); Glucose, Urine Negative (Negative); Ketones,Urine Negative (Negative); Leukocyte Esterase,Urine Negative (Negative); Nitrite,Urine Negative (Negative); PH,Urine 6.0 (5.0-7.0); Protein,Urine Negative (Neg - Trace); Specific Gravity,Urine 1.031 (1.001-1.035); Squamous Epithelial Cell,Urine 2 /hpf (0-5); Urobilinogen,Urine Negative mg/dL (0.0-1.0)
--- NOTE | 2025-02-17 20:40 | EDNOTE_ITS ---
ED Dizzyness RME/HPI General Chief Complaint: Dizziness Stated Complaint: HTN 199/88, dizzy, feels faint, blurry vision Time Seen by Provider: 02/17/25 16:11 Arrival date/time: 02/17/25 15:49 RME / HPI RME / HPI Narrative: 02/17/25 15:49 This is a case of 74-year-old female with history of hypertension came into the emergency room with on and off dizziness and headache denies any numbness weakness or tingling sensation persistence of the symptoms this patient decided to sought consult here in the emergency room Dr. Orr?s Main ED Evaluation: 74yo female with history of COPD presents to the ED for complaints of headache and dizziness. Patient states she's had a persistent headache for the last 1 week. She started having dizziness 2 days ago that has progressively gotten worse, so she came in for evaluation. Patient reports associated nausea. Denies any vomiting, diarrhea, numbness, weakness, or any other associated symptoms. Patient does ambulate with a walker. Related Data Home Medications ?Medication ?Instructions ?Recorded ?Confirmed benazepril 20 mg tablet 5 mg PO QDAY 02/22/18 omeprazole 20 mg tablet,delayed 20 mg PO QDAY 02/22/18 07/09/23 release allopurinol 300 mg tablet 300 mg PO DAILY 03/25/21 atorvastatin 80 mg tablet 80 mg PO DAILY 03/25/2106/20 carvedilol 6.25 mg tablet 6.25 mg PO DAILY 03/25/21 mskpwz-vfzsvucw-wvuhwnt(pork)12,000-38,000-60,000 12,0 00 cap PO DAILY 03/25/21 07/09/23 unit capsule,del rel (Creon) ranolazine 500 mg tablet,extended 5 mg PO BID 03/25/21 07/09/23 release,12 hr spironolactone 25 mg tablet 25 mg PO EVERYOTHERDAY 06/1007/09/23 roflumilast 500 mcg tablet 500 mcg PO QDAY 09/08/21 (Daliresp) carbidopa 25 mg-levodopa 100 mg 1 tab PO TID 07/09/23 07/09/23 tablet Previous Rx's ?Medication ?Instructions ?Recorded pantoprazole 40 mg tablet,delayed 40 mg PO QDAY #30 ta bs 06/28/23 release (Protonix) pantoprazole 40 mg tablet,delayed 40 mg PO QDAY #30 ta bs 07/11/23 release (Protonix) sucralfate 100 mg/mL oral 5 ml PO QID #420 mL 07/11/23 suspension (Carafate) diazepam 5 mg tablet 5 mg PO BID PRN muscle spasm #5 09/24/23 tabs meclizine 25 mg tablet 25 mg PO QID PRN dizziness # 20 tabs 06/28/24 acetaminophen 300 mg-codeine 15 mg 1 tab PO Q8H #14 ta bs 08/27/24 tablet hydrocodone 5 mg-acetaminophen 325 1 tab PO Q6H PRN pa in #1 tab 08/27/24 mg tablet hydrocodone 5 mg-acetaminophen 325 1 tab PO Q6H PRN pa in #14 tabs 08/27/24 mg tablet ondansetron 4 mg disintegrating 4 mg PO Q6H PRN nausea and 08/27/24 tablet vomiting #10 tabs Allergies Allergy/AdvReac Type Severity Reaction Status Date / Time duloxetine Allergy Intermediate Shakiness Verified 02/17/25 15:54 gabapentin Allergy Intermediate Rash Verified 02/17/25 15:54 Review of Systems Review of Systems Systems Reviewed: All systems reviewed, normal except as documented Past Medical History Past Medical History NEUROLOGIC: Negative Neurological Disorders or Seizures CARDIAC: Positive Cardiac Disorders, Myocardial Infarction, Hypercholesterolemia and Hypertension; Negative Congestive Heart Failure RESPIRATORY: Positive Chronic Obstructive Pulmonary Disease (COPD), Emphysema and Pneumonia; Negative Tuberculosis or Sleep Apnea GASTROINTESTINAL: Positive Gastrointestinal Disorders, Pancreatitis, Hemorrhoids and Gastroesophageal Reflux Disease; Negative Hepatitis GENITOURINARY: Positive Genitourinary Disorders and Renal Disease; Negative Dialysis REPRODUCTIVE: Positive Previous Pregnancies MUSCULOSKELETAL: Positive Musculoskeletal Disorders, Arthritis and Carpal Tunnel Syndrome ENT: Positive Cataracts ENDOCRINE: Positive Endocrine Disorders, Diabetes Mellitus Type 1 and Diabetes Mellitus Type 2 HEMATOLOGIC: Positive Blood Disorders PSYCHO/SOCIAL: Positive Depression and Anxiety OTHER HISTORY: Positive Hospitalization, Chicken Pox, Measles and Mumps; Negative Autoimmune Disease, Shingles, Falls, Blood Transfusions, Blood Transfusion Reaction, Anesthesia Reactions, Chemotherapy, Radiation Therapy, MRSA or Cancer Family History FAMILY HISTORY: Positive Family Cardiac Disorders and Family Cancer; Negative Family Psychiatric Problems, Family Respiratory Disorders, Family Gastrointestinal Problems, Family Surgery or Family Anesthesia Reaction Surgical History SURGICAL: Positive Tonsillectomy, Joint Replacement and Open Reduction Internal Fixation Social History SMOKING STATUS: Never smoker SUBSTANCE USE: does not use ED Exam Narrative Physical exam: Generally patient is alert and in no obvious distress, neck showed no bruits, heart regular rate and rhythm, lungs clear to auscultation equal bilaterally, abdomen soft bowel sounds present also nontender, neurologic exam shows the patient to be able to walk with her walker and in normal fashion. Rapid alternating movements and tqdvpm-jv-vofz movements are intact bilaterally. No focal motor deficits. Joanna Coma Scale is 15. Skin is warm pale and dry Course Quality Measures none Orders Category Date Time Status EKG (ED ONLY) *Do not use* NOW Care 02/17/25 16:[address] head/brain wo con Stat Exams 02/17/25 16:12 Completed EKG (ED Only) Stat Exams 02/17/25 16:12 Draft CBC Stat Lab 02/17/25 16:50 Completed CMP [Comprehensive Metabolic Panel] Stat Lab 02/17/25 16:50 Completed Troponin I Stat Lab 02/17/25 16:50 Completed Urinalysis Stat Lab 02/17/25 17:11 Completed Vital Signs Vital signs: Vital Signs Temperature 99 F 02/17/25 16:12 Pulse Rate 64 02/17/25 16:12 Respiratory Rate 20 02/17/25 16:12 Blood Pressure 163/94 H 02/17/25 16:12 Pulse Oximetry (%) 96 02/17/25 16:12 Oxygen Delivery Method Room Air 02/17/25 16:12 Dizziness MDM Narrative MDM Narrative:: Scribe Attestation: 02/17/25 Tierra Hall am scribing for and in the presence of Dr. Orr. I interpreted all labs. There is no anemia. No renal insufficiency. Cardiac workup is unremarkable. Head CT was negative. Blood pressure was 160s over 70s here in the emergency room. Patient states that she feels better. Has very mild bilateral headache. Decreased dizziness. Patient has had problems with dizziness and headache in the past. This is nothing new for the patient. Patient will be discharged in stable condition to follow-up with primary care for further treatment and evaluation. Patient data External records reviewed:: [facility] previous records (Per chart review, patient was seen here on 08/26/24 for tension headache.) Clinical information provided by:: patient Social determinants that could affect healthcare access:: none Patient has the following chronic illnesses:: COPD, HLD, DM How is presenting disease/condition affected by chronic disease/condition?: uneffected by Evaluation data The following diagnostics were reviewed and interpreted by me:: lab results, radiology exam(s) and EKG tracing(s) Lab and/or radiology exams considered but not ordered:: none Interpretation Summary: [place] [facility] Report Signed Patient: JAMEY CHUA [facility]. Record#: [id number] Birthdate: 1950 Age/Sex: 74 / F Location: [facility] Attending Dr: Ordering Physician: Paula Betancourt Date of Service: 02/17/25 Procedure(s): CT head/brain wo con Accession Number(s): [id number] cc: Jorge Kaye MD; Paula Betancourt~ Examination: CT brain head without contrast. 2-D sagittal coronal reconstructions Date and time of exam: February 17, 2025, 1801 hours INDICATIONS: High blood pressure with dizziness. Vision beginning 3 days ago CTDI: vol (mGy): 45.5 DLP: (mGycm): 905 Technique: Multiple CT axial sections of the brain have been obtained, 5 mm slice thickness. Contrast has not been administered. 2-D sagittal, coronal reconstructions have been obtained Low dose protocols were performed. One or more of the following dose reduction techniques were used; automated exposure control, adjustment of the mA and/or KV according to patient size, use of iterative reconstruction technique. Findings: No significant ventricular enlargement. Intra-axial or extra-axial hemorrhage density is not seen. No mass effect or midline shift Basal cisterns are not remarkable. Fourth ventricle is midline. Cranial vault intact. Impression: Negative for acute hemorrhage, mass effect or midline shift Dictated By: Jorge Kaye MD Signed By: <Electronically signed by Jorge Kaye MD in OV> 02/17/25 1813 Medications / Prescriptions Medications or Prescriptions considered but not ordered:: none Medication administrations:: none Consultations Consultation(s) initiated? (list below): No Diagnosis Dizziness Differential Diagnosis: other (See MDM) Most likely diagnosis given after review of the tests above:: see clinical impression below Admission Indicated Admission indicated?: not indicated Admission Request Was there a request for admission?: No Disposition Plan Disposition Plan: Discharge Discharge Attestation Discharge Attestation: The patient and all family members were given an opportunity to ask questions and understood the discharge instructions. Discharge instructions specifically effects, indications for sooner follow up or return to the emergency department, and the expected course of current diagnosis. Patient condition: Stable Discharge Plan Plan Patient Disposition: HOME (Self Care) Prescriptions/Referrals Prescriptions/Med Rec: No Action Daliresp 500 mcg tablet 500 mcg PO QDAY benazepril 20 mg Tablet 5 mg PO QDAY omeprazole 20 mg Tablet,Delayed Release (Dr/Ec) 20 mg PO QDAY Creon 12,000-38,000 -60,000 unit Capsule,Delayed Release(Dr/Ec) 12,000 cap PO DAILY spironolactone 25 mg tablet 25 mg PO EVERYOTHERDAY ranolazine 500 mg Tablet Extended Release 12 Hr 5 mg PO BID atorvastatin 80 mg tablet 80 mg PO DAILY carvedilol 6.25 mg tablet 6.25 mg PO DAILY allopurinol 300 mg tablet 300 mg PO DAILY meclizine 25 mg tablet 25 mg PO QID PRN (Reason: dizziness) Qty: 20 0RF ondansetron 4 mg tablet,disintegrating 4 mg PO Q6H PRN (Reason: nausea and vomiting) Qty: 10 0RF acetaminophen-codeine 300-15 mg tablet 1 tab PO Q8H Qty: 14 0RF hydrocodone-acetaminophen 5-325 mg tablet 1 tab PO Q6H MDD max 4 tabs per day PRN (Reason: pain) Qty: 14 0RF hydrocodone-acetaminophen 5-325 mg tablet 1 tab PO Q6H MDD 4tab/day PRN (Reason: pain) Qty: 1 0RF pantoprazole [Protonix] 40 mg tablet,delayed release (DR/EC) 40 mg PO QDAY Qty: 30 0RF carbidopa-levodopa 25-100 mg tablet 1 tab PO TID Patient Comments: take 1 tablet by mouth three times a day sucralfate [Carafate] 100 mg/mL suspension 5 ml PO QID Qty: 420 0RF Rx Instructions: swish in mouth and swallow; use after food/drink pantoprazole [Protonix] 40 mg tablet,delayed release (DR/EC) 40 mg PO QDAY Qty: 30 0RF diazepam 5 mg tablet 5 mg PO BID MDD 2 PRN (Reason: muscle spasm) Qty: 5 0RF Referrals: Nicolette Coats MD [Primary Care Provider, Nephrology] - In 1 week Problem List Clinical Impression: Cephalgia, Dizziness Patient/Caregiver Discharge Instructions Education Materials: Self-Care for Headaches Additional Instructions: If symptoms persist follow-up with your doctor for further treatment and evaluation. Return to ER as needed or if condition worsens. Print Language: Welsh Stand Alone Forms: Margie Award Info., Patient Portal Info Letter
== END 2025-02-17 21:07 | disposition home or self-care (01) ==
PROVIDERS: Nurse Practitioner Family; Emergency Provider Emergency Medicine; PCP Internal Medicine
DX: R42 Dizziness and giddiness (principal); R51.9 Headache, unspecified; R94.31 Abnormal electrocardiogram [ECG] [EKG]; I25.2 Old myocardial infarction; E78.00 Pure hypercholesterolemia, unspecified; I10 Essential (primary) hypertension
CPT/HCPCS: 36415; 70450; 80053; 81001; 84484; 85025; 93005; 99283